=== PATIENT | female | born 1995 | race Two or more races ===

== ENCOUNTER 2024-07-30 11:15 | Emergency (ER) | payer MEDICAID ==
[~2024-07-30] VITALS: Ht 160 cm; Wt 85.0 kg
[~2024-07-30 11:15] MED LIST: Ibuprofen Micronized PO; PREN-96 PO
[2024-07-30 12:08] LABS: Hematocrit 41.2 % (36.0-46.0); Hemoglobin 14.1 g/dL (12.2-16.2); Mean Corpuscular Hemoglobin 31.1 pg (28.0-32.0); Mean Corpuscular Hgb Conc. 34.3 g/dL (32.0-36.0); Mean Corpuscular Volume 90.7 fL (80.0-100.0); Platelet Count (auto) 212 10^3/uL (140-450); Red Blood Cells 4.54 10^6/uL (4.0-5.20); Red Cell Distribution Width 14.5 % (11.8-14.3)
[2024-07-30 12:12] LABS: Band Neutrophils % (manual) 0; Basophils % (manual) 0 (0.0-2.0); Blast Cells 0; Metamyelocytes % 0; Myelocytes % 0; Promyelocytes % 0; Reactive Lymphocytes 0
[2024-07-30 12:53] VITALS: BP 107/70; PULSE 96; RESP 18; TEMP 98.6; O2SAT 97
[2024-07-30 12:53] LABS: Eosinophils % (manual) 1 (0-7); Lymphocytes % (manual) 36 (10.0-50.0); Monocytes % (manual) 21 (0-12); Platelet Estimate Adequate
--- NOTE | 2024-07-30 13:13 | DVH ---
OB ULTRASOUND <14 WEEKS: HISTORY: VAGINAL BLEEDING, 7 WEEKS TECHNIQUE: Multiple real-time grayscale sonographic images of the pelvis with duplex Doppler color f low, spectral and M-mode analysis. TRANSDUCERS: Transabdominal and endovaginal FINDINGS: The uterus measures 8.8 x 5.7 x 4.8 cm. The cervix appears closed. Right ovary measures 3.3 x 1.7 x 1.6 with normal Doppler color flow Left ovary measures 4.2 x 2.0 x 3.0 with normal Doppler color flow. Left ovarian cystic structure me asuring 1.8 cm. There is a cystic structure within the endometrial space measuring 1.03 cm. No definite internal yolk sac is appreciated. No pole or cardiac activity is noted. IMPRESSION: 1. Cystic structure within the endometrial space which may represent an early gestational sac versus pseudo gestational sac. No definite pole or cardiac motion is appreciated at this time, possibly due to early gestational age. Recommend continued correlation with beta HCG and follow-up so nography as clinically indicated. 2. Left ovarian 1.8 cm cystic structure could represent follicular cyst or corpus luteum cyst. HS:Y
[2024-07-30 14:35] LABS: Urine Bacteria FEW /hpf (None Seen); Urine Blood 3+ /uL (Negative); Urine Clarity Clear (Clear); Urine Color Colorless (Yellow); Urine Protein, UAD Negative (Negative); Urine Specific Gravity 1.003 (1.001-1.035); Urine Squamous Epithelial Cell FEW /hpf (<5); Urine Urobilinogen Normal (Negative); Urine WBC <1 /hpf (0 - 5); Urine pH 6.5 (5.0-9.0)
--- NOTE | 2024-07-30 14:35 | ED.PDOC ---
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 PATIENT REPORTS THAT SHE HAS BEEN SPOTTING SINCE YESTERDAY, BUT THEN STARTED TO HAVE WORSENING VAGINAL BLEEDING TODAY. PATIENT RELAYS THAT SHE HAS ASSOCIATED ABDOMINAL CRAMPING. PATIENT STATES SHE IS CURRENTLY 7 WEEKS , BUT DOES NOT HAVE AN OBGYN AT THIS TIME. PATIENT DENIES ANY N/V/D, DIZZINESS, VAGINAL DISCHARGE, DYSURIA, OR FEVER. Chief Complaint: Vaginal Bleed Time Seen by MD: 14:29 Reviewed Notes: Nurses Notes, Medications, Allergies Allergies: Coded Allergies: Corticosteroids (Verified Allergy, Unknown, 06/09/14) Home Meds Active Scripts [Ibuprofen Micronized] 600 MG TB No Conflict Check, 600 MG PO Q6HPRN PRN for MODERATE PAIN, #60 TAB Prov:MICKY YOUNG MD 06/11/14 Reported Medications Vit W/ Ferrous Fumara ( One Daily) Daily Tab, 1 TAB PO DAILY, #90 TAB 3 Refills 04/23/14 Information Source: Patient Mode of Arrival: Ambulatory Timing: Days Prehospital treatment: None Severity: Moderate Bleeding Quality: Bright Red Vaginal Mass: None Onset Of Mass/Bleeding: Spontaneous Sexual Activity: Last Consensual [place]: Unknown Control: None History of: Current Associated Signs and Symptoms: Vaginal Bleeding, Cramping Past Medical History PAST MEDICAL HISTORY: Denies Surgical History: Denies all surgeries ROLL ICER History: No Pertinent ROLL ICER History 2 Para 1 Family History Family History: Reviewed,noncontributory to illness Social History Smoker: Non-Smoker Alcohol: Denies ETOH Use Drugs: Denies Drug Use Lives In: Home Constitutional: denies: chills, diaphoresis, fatigue, fever, malaise, sweats, weakness, others EENTM: denies: blurred vision, double vision, ear bleeding, ear discharge, ear drainage, ear pain, ear ringing, eye pain, eye redness, hearing loss, mouth pain, mouth swelling, nasal discharge, nose bleeding, nose congestion, nose pain, photophobia, tearing, throat pain, throat swelling, voice changes, others Respiratory: denies: cough, hemoptysis, orthopnea, SOB at rest, shortness of breath, SOB with excertion, stridor, wheezing, others Cardiovascular: denies: chest pain, dizzy spells, diaphoresis, Dyspnea on exertion, edema, irregular heart beat, left arm pain, lightheadedness, palpitations, PND, syncope, others Gastrointestinal: denies: abdomen distended, abdominal pain, blood streaked bowels, constipated, diarrhea, dysphagia, difficulty swallowing, hematemesis, melena, nausea, poor appetite, poor fluid intake, rectal bleeding, rectal pain, vomiting, others Genitourinary: reports: abnormal vagina bleeding, , vagina discharge; denies: burning, dyspareunia, dysuria, flank pain, frequency, hematuria, incontinence, pain, urgency, others Neurological: denies: dizziness, fainting, headache, left sided numbness, left sided weakness, numbness, paresthesia, pre-existing deficit, right sided num bness, right sided weakness, seizure, speech problems, tingling, tremors, weakness, others Musculoskeletal: denies: back pain, gout, joint pain, joint swelling, muscle pain, muscle stiffness, neck pain, others Integumetry: denies: bruises, change in color, change in hair/nails, dryness, laceration, lesions, lumps, rash, wounds, others Allergic/Immunocompromised: denies: Difficulty Healing, Frequent Infections, Hives, Itching, others Hematologic/Lymphatic: denies: anemia, blood clots, easy bleeding, easy bruising, swollen glands, others Endocrine: denies: excessive hunger, excessive sweating, excessive thirst, excessive urination, flushing, intolerance to cold, intolerance to heat, unexplained weight gain, unexplained weight loss, others Psychiatric: denies: anxiety, bipolar disorder, depression, hopeless, panic disorder, schizophrenia, sleepless, suicidal, others All Other Systems: Reviewed and Negative Physical Exam General Appearance: No Apparent Distress, Normal HEENT: Normal ENT Inspection, PERRL/EOMI, Pharynx Normal Neck: Full Range of Motion, Non-Tender, Normal, Normal Inspection Respiratory: Chest Non-Tender, Lungs Clear, No Accessory Muscle Use, No Respiratory Distress, Normal Breath Sounds Cardiovascular: No Edema, No JVD, No Murmur, No Gallop, Normal Peripheral Pulses, Regular Rate/Rhythm Breast Exam: Deferred Gastrointestinal: No Organomegaly, Non Tender, No Pulsatile Mass, Normal Bowel Sounds, Soft Genitalia: Deferred Pelvic: Normal External Exam, Vaginal Bleeding (MILD VAGINAL BLEEDING, NO BLOOD CLOTS, NO ACTIVELY BLEEDING. 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 Was a procedure done?: No Differential Diagnosis (ROLL ICER) Vaginal Bleeding: - Threatened, Ectopic , UTI, Vaginitis X-Ray, Labs, Meds, VS Vital Signs Date Time Temp Pulse Resp B/P (MAP) Pulse Ox O2 Delivery O2 Flow Rate FiO2 07/30/24 12:53 98.6 96 18 107/70 (82) 97 98.6 07/30/24 12:53 96 18 97 Room Air 07/30/24 11:25 98.7 97 20 125/82 (96) 99 Lab Test 07/30/24 11:59 07/30/24 11:21 Range/Units White Blood Count 5.0 4.4-10.8 10^3/uL Red Blood Count 4.54 4.0-5.20 10^6/uL Hemoglobin 14.1 12.2-16.2 g/dL Hematocrit 41.2 36.0-46.0 % Mean Corpuscular Volume 90.7 80.0-100.0 fL Mean Corpuscular Hemoglobin 31.1 28.0-32.0 pg Mean Corpuscular Hemoglobin Concent 34.3 32.0-36.0 g/dL Red Cell Distribution Width 14.5 H 11.8-14.3 % Platelet Count 212 140-450 10^3/uL Mean Platelet Volume 8.8 6.9-10.8 fL Neutrophils (%) (Auto) 37.0-80.0 % Lymphocytes (%) (Auto) 10.0-50.0 % Monocytes (%) (Auto) 0.0-12.0 % Basophils (%) (Auto) 0.0-2.0 % Neutrophils # (Auto) 1.6-8.6 10 ^3/uL Lymphocytes # (Auto) 0.4-5.4 10 ^3/uL Monocytes # (Auto) 0-1.3 10 ^3/uL Differential Total Cells Counted 100.0 100 Neutrophils % (Manual) 42 37.0-80.0 Band Neutrophils % (Manual) 0 Lymphocytes % (Manual) 36 10.0-50.0 Monocytes % (Manual) 21 H 0-12 Eosinophils % (Manual) 1 0-7 Basophils % (Manual) 0 0.0-2.0 Metamyelocytes % (manual) 0 Myelocytes % (Manual) 0 Promyelocytes % (Manual) 0 Blast Cells % (Manual) 0 Reactive Lymphocytes 0 Platelet Estimate Adequate Beta HCG, Quantitative 8964.3 H 1.5-4.2 mIU/mL Urine Color Pending Urine Clarity Pending Urine pH Pending Urine Specific [place] Pending Urine Protein Pending Urine Ketones Pending Urine Blood Pending Urine Nitrite Pending Urine Bilirubin Pending Urine Urobilinogen Pending Urine Leukocyte Esterase Pending Urine RBC Pending Urine WBC Pending Urine Squamous Epithelial Cells Pending Urine Bacteria Pending Urine Glucose Pending PATIENT: NORA CORREAACCT: [id number]: [id number] : 1995 LOC: ER ROOM / BED: / AGE / SEX: 28 / F ADM STATUS: REG ER SERVICE 1134 ORDERING PHYSICIAN: RASHAAD ESCOBEDO PROCEDURE(s): OB4US - OB ULTRASOUND COMP LESS 14WKS REASON: VAGINAL BLEEDING, 7 WEEKS ORDER NUMBER(s): [id number], ACCESSION NUMBER(s): [id number] OB ULTRASOUND <14 WEEKS: HISTORY: VAGINAL BLEEDING, 7 WEEKS TECHNIQUE: Multiple real-time grayscale sonographic images of the pelvis with duplex Doppler color flow, spectral and M-mode analysis. TRANSDUCERS: Transabdominal and endovaginal FINDINGS: The uterus measures 8.8 x 5.7 x 4.8 cm. The cervix appears closed. Right ovary measures 3.3 x 1.7 x 1.6 with normal Doppler color flow Left ovary measures 4.2 x 2.0 x 3.0 with normal Doppler color flow. Left ovarian cystic structure measuring 1.8 cm. There is a cystic structure within the endometrial space measuring 1.03 cm. No definite internal yolk sac is appreciated. No pole or cardiac activity is noted. IMPRESSION: 1. Cystic structure within the endometrial space which may represent an early gestational sac versus pseudo gestational sac. No definite pole or cardiac motion is appreciated at this time, possibly due to early gestational age. Recommend continued correlation with beta HCG and follow-up sonography as clinically indicated. 2. Left ovarian 1.8 cm cystic structure could represent follicular cyst or corpus luteum cyst. HS:Y ATED BY: BALDO BURNS DO DICTATED DATE/TIME: 07/30/24 131 SIGNED BY: BALDO BURNS DO SIGNED DATE/TIME: 07/30/241309 CC: Time of 1ST Reevaluation: 14:30 Reevaluation 1ST: Improved Patient Education/Counseling: Diagnosis, Treatment, Need For Follow Up Family Education/Counseling: Diagnosis, Treatment, No Family Present Medical Screening: No EMC Exist At This Time Departure 1 Departure Time of Disposition: 14:33 Impression: Primary Impression: Vaginal bleeding affecting early Additional Impression: Threatened in early Disposition: 01 HOME / SELF CARE / HOMELESS Condition: Stable Additional Instructions: F/U ER OR [facility] IN 2 DAYS TO REPEAT BETA-HCG TEST. IF CONDITION BECOME WORSE, RETURN TO ED [facility]. Discharged With: Self Critical Care Note Critical Care Time?: No Stability Stability form required: No Heart Score Heart Score: Heart Score Response (Comments) Value History N/A 0 EKG N/A 0 Age N/A 0 Risk Factors N/A 0 Troponin N/A 0 Total 0 RASHAAD ESCOBEDO Jul 30, 2024 14:35
== END 2024-07-30 14:35 | disposition home or self-care (01) ==
LOC: ER 11:15
DX: O20.0 Threatened abortion (principal); Z3A.01 Less than 8 weeks gestation of pregnancy
CPT/HCPCS: 36415; 76801; 76817; 81001; 84702; 85007; 85027

== ENCOUNTER 2024-08-03 11:02 | Emergency (ER) | payer MEDICAID ==
[~2024-08-03] VITALS: Ht 160 cm; Wt 84.2 kg
--- NOTE | 2024-08-03 11:46 | ED.PDOC ---
History of Present Illness HPI Comments 28 year old female presents to the ED with a chief complaint of vaginal bleeding onset 07/30/2024. Patient is currently 7 weeks , has not seen OBGYN has appointment on 08/11/2024. She began experiencing vaginal bleeding with clots and passed tissue 3 days ago (has picture) as well as pelvic pain/cramping and low back pain. She was seen in this ED on 07/30/2024 and was told to come back in 2 days for repeat HCG. P:1. Denies PMHx. No other symptoms or modifying factors present at this time. Chief Complaint: Vaginal Bleed Time Seen by MD: 11:39 Primary Care Provider: song Reviewed Notes: Medications, Allergies Allergies: Coded Allergies: Corticosteroids (Verified Allergy, Unknown, 06/09/14) Home Meds Active Scripts [Ibuprofen Micronized] 600 MG TB No Conflict Check, 600 MG PO Q6HPRN PRN for MODERATE PAIN, #60 TAB Prov:MICKY YOUNG MD 06/11/14 Reported Medications Vit W/ Ferrous Fumara ( One Daily) Daily Tab, 1 TAB PO DAILY, #90 TAB 3 Refills 04/23/14 Information Source: Patient Mode of Arrival: Ambulatory Severity: Moderate Timing: Days Duration: Since onset Prehospital treatment: None Past Medical History PAST MEDICAL HISTORY: Denies Surgical History: Denies all surgeries BRIDAL GOWN FITTER History: No Pertinent BRIDAL GOWN FITTER History Family History Family History: Reviewed,noncontributory to illness Social History Smoker: Non-Smoker Alcohol: Denies ETOH Use Drugs: Denies Drug Use Lives In: Home Constitutional: denies: chills, diaphoresis, fatigue, fever, malaise, sweats, weakness, others EENTM: denies: blurred vision, double vision, ear bleeding, ear discharge, ear drainage, ear pain, ear ringing, eye pain, eye redness, hearing loss, mouth pain, mouth swelling, nasal discharge, nose bleeding, nose congestion, nose pain, photophobia, tearing, throat pain, throat swelling, voice changes, others Respiratory: denies: cough, hemoptysis, orthopnea, SOB at rest, shortness of breath, SOB with excertion, stridor, wheezing, others Cardiovascular: denies: chest pain, dizzy spells, diaphoresis, Dyspnea on exertion, edema, irregular heart beat, left arm pain, lightheadedness, palpitations, PND, syncope, others Gastrointestinal: denies: abdomen distended, abdominal pain, blood streaked bowels, constipated, diarrhea, dysphagia, difficulty swallowing, hematemesis, melena, nausea, poor appetite, poor fluid intake, rectal bleeding, rectal pain, vomiting, others Genitourinary: reports: abnormal vagina bleeding, pain, ; denies: burning, dyspareunia, dysuria, flank pain, frequency, hematuria, incontinence, vagina discharge, urgency, others Neurological: denies: dizziness, fainting, headache, left sided numbness, left sided weakness, numbness, paresthesia, pre-existing deficit, right sided numbness, right sided weakness, seizure, speech problems, tingling, tremors, weakness, others Musculoskeletal: denies: back pain, gout, joint pain, joint swelling, muscle pain, muscle stiffness, neck pain, others Integumetry: denies: bruises, change in color, change in hair/nails, dryness, laceration, lesions, lumps, rash, wounds, others Allergic/Immunocompromised: denies: Difficulty Healing, Frequent Infections, Hives, Itching, others Hematologic/Lymphatic: denies: anemia, blood clots, easy bleeding, easy bruising, swollen glands, others Endocrine: denies: excessive hunger, excessive sweating, excessive thirst, excessive urination, flushing, intolerance to cold, intolerance to heat, unexplained weight gain, unexplained weight loss, others Psychiatric: denies: anxiety, bipolar disorder, depression, hopeless, panic disorder, schizophrenia, sleepless, suicidal, others All Other Systems: Reviewed and Negative Physical Exam General Appearance: No Apparent Distress, Normal HEENT: Normal ENT Inspection Neck: Full Range of Motion, Non-Tender, Normal, Normal Inspection Respiratory: Chest Non-Tender, Lungs Clear, No Accessory Muscle Use, No Respiratory Distress, Normal Breath Sounds Cardiovascular: No Edema, No Murmur, No Gallop, Normal Peripheral Pulses, Regular Rate/Rhythm Breast Exam: Deferred Gastrointestinal: No Organomegaly, Non Tender, No Pulsatile Mass, Normal Bowel Sounds, Soft Genitalia: Deferred Pelvic: Deferred (per patient's request) Rectal: Deferred Extremities: No calf tenderness, Normal capillary refill, Normal inspection, Normal range of motion, Non-tender, No pedal edema Musculoskeletal : Apperance: Normal Neurologic: Alert, No Motor Deficits, Normal Affect, Normal Mood, No Sensory Deficits Cerebellar Function: NOT DONE Reflexes: NOT DONE Skin: Dry, Normal Color, Warm Lymphatic: No Adenopathy Was a procedure done? Was a procedure done?: No Differential Dx Considerations may include: Considered ectopic , coagulopathy, molar , as well as other causes for abnormal uterine bleeding, but believe these to be less likely based on history/physical/evaluation as above. X-Ray, Labs, Meds, VS Vital Signs Date Time Temp Pulse Resp B/P (MAP) Pulse Ox O2 Delivery O2 Flow Rate FiO2 08/03/24 11:21 99.2 100 17 128/47 (74) 98 Lab Test 08/03/24 12:04 08/03/24 11:54 Range/Units White Blood Count 5.6 4.4-10.8 10^3/uL Red Blood Count 4.41 4.0-5.20 10^6/uL Hemoglobin 13.6 12.2-16.2 g/dL Hematocrit 39.9 36.0-46.0 % Mean Corpuscular Volume 90.4 80.0-100.0 fL Mean Corpuscular Hemoglobin 30.8 28.0-32.0 pg Mean Corpuscular Hemoglobin Concent 34.0 32.0-36.0 g/dL Red Cell Distribution Width 14.1 11.8-14.3 % Platelet Count 241 140-450 10^3/uL Mean Platelet Volume 8.7 6.9-10.8 fL Neutrophils (%) (Auto) 53.6 37.0-80.0 % Lymphocytes (%) (Auto) 37.9 10.0-50.0 % Monocytes (%) (Auto) 6.3 0.0-12.0 % Eosinophils (%) (Auto) 1.8 0.0-7.0 % Basophils (%) (Auto) 0.4 0.0-2.0 % Neutrophils # (Auto) 3.0 1.6-8.6 10 ^3/uL Lymphocytes # (Auto) 2.1 0.4-5.4 10 ^3/uL Monocytes # (Auto) 0.4 0-1.3 10 ^3/uL Eosinophils # (Auto) 0.1 0-0.8 10 ^3/uL Basophils # (Auto) 0 0-0.2 10 ^3/uL Nucleated Red Blood Cells 0.1 % Sodium Level 141 136-145 mmol/L Potassium Level 4.0 3.5-5.1 mmol/L Chloride Level 109 H 98-107 mmol/L Carbon Dioxide Level 24 20-31 mmol/L Anion Gap 8 5-15 Blood Urea Nitrogen 13 9-23 mg/dL Creatinine 0.80 0.550-1.02 mg/dL Glomerular Filtration Rate Calc 102 >90 mL/min BUN/Creatinine Ratio 16.3 10.0-20.0 Serum Glucose 98 74-106 mg/dL Calcium Level 9.6 8.7-10.4 mg/dL Beta HCG, Quantitative 388.4 H 1.5-4.2 mIU/mL Urine Color Yellow Yellow Urine Clarity Turbid H Clear Urine pH 6.0 5.0-9.0 Urine Specific [place] 1.033 1.001-1.035 Urine Protein Trace H Negative Urine Ketones Negative Negative Urine Blood 3+ H Negative /uL Urine Nitrite Negative Negative Urine Bilirubin Negative Negative Urine Urobilinogen Normal Negative mg/dL Urine Leukocyte Esterase 3+ Negative /uL Urine RBC 119 0 - 4 /hpf Urine WBC 24 0 - 5 /hpf Urine Squamous Epithelial Cells Mod <5 /hpf Urine Bacteria None seen None Seen /hpf Urine Mucus Few None Seen Urine Glucose Normal Normal mg/dL X-Ray, Labs, Meds, VS Comment Patient presents with vaginal bleeding and passing tissue with low back pain/cramping in the first trimester with physical exam and evaluation concerning for threatened . Discussed with patient implications regarding this and that patient will need a repeat bHCG check and u ltrasound in the next 48 hours. No evidence of acute infection at this time. Patient is Rh+ and there is no current indication for Rhogam. Reviewed return precautions including, but not limited to significant vaginal bleeding, symptomatic anemia, severe abdominal pain, and fever >100.4. Patient is in agreement with the plan and all questions answered. Patient has an OB appointment in approx 7 days. Images Reviewed?: Images reviewed and evaluated by me Time of 1ST Reevaluation: 12:09 Reevaluation 1ST: Unchanged Patient Education/Counseling: Diagnosis, Treatment, Prognosis, Need For Follow Up (48 hours for repeat hcg/US) Family Education/Counseling: No Family Present Additional Information I reviewed the following notes from patient's past medical encounters: The following tests were ordered, and results were reviewed by me: CBC, TYPE AND SCREEN, OB ULTRASOUND COMP, BETA HCG, URINE PREGM BMP, UA, URINE BACTERIAL CULTURE I reviewed and agreed with the following test results read by other providers: OB ULTRASOUND COMP I discussed treatment and results with medical personnel and: patient Departure 1 Departure Time of Disposition: 16:03 Impression: Primary Impression: Miscarriage, threatened, early Disposition: HOME / SELF CARE / HOMELESS Condition: Stable Discharged With: Self Critical Care Note Critical Care Time?: No Stability Stability form required: No I personally scribed for ER ([email or web address]) on 08/03/24 at 11:50. Electronically submitted by Tawana Kerr ([email or web address]). I personally scribed for ER ([email or web address]) on 08/03/24 at 11:53. Electronically submitted by Tawana Kerr ([email or web address]). DONNIE AMAYA MD Aug 03, 2024 11:46 ER Aug 03, 2024 11:50
[2024-08-03 12:18] LABS: Urine Bacteria None Seen /hpf (None Seen)
[2024-08-03 12:35] LABS: Basophils # (auto) 0 10 ^3/uL (0-0.2); Basophils % (auto) 0.4 % (0.0-2.0); Eosinophils # (auto) 0.1 10 ^3/uL (0-0.8); Eosinophils % (auto) 1.8 % (0.0-7.0); Hematocrit 39.9 % (36.0-46.0); Hemoglobin 13.6 g/dL (12.2-16.2); Lymphocytes # (auto) 2.1 10 ^3/uL (0.4-5.4); Lymphocytes % (auto) 37.9 % (10.0-50.0); Mean Corpuscular Hemoglobin 30.8 pg (28.0-32.0); Mean Corpuscular Volume 90.4 fL (80.0-100.0); Monocytes # (auto) 0.4 10 ^3/uL (0-1.3); Monocytes % (auto) 6.3 % (0.0-12.0); Neutrophils % (auto) 53.6 % (37.0-80.0); Nucleated Red Blood Cells % 0.1 %; Platelet Count (auto) 241 10^3/uL (140-450); Red Blood Cells 4.41 10^6/uL (4.0-5.20); Red Cell Distribution Width 14.1 % (11.8-14.3); White Blood Cell 5.6 10^3/uL (4.4-10.8)
[2024-08-03 12:40] LABS: Urine Blood 3+ /uL (Negative); Urine Clarity Turbid (Clear); Urine Color Yellow (Yellow); Urine Mucus FEW (None Seen); Urine Protein, UAD TRACE (Negative); Urine Specific Gravity 1.033 (1.001-1.035); Urine Squamous Epithelial Cell MOD /hpf (<5); Urine Urobilinogen Normal (Negative); Urine WBC 24 /hpf (0 - 5)
[2024-08-03 12:41] LABS: Sodium 141 mmol/L (136-145)
[2024-08-03 12:42] LABS: Anion Gap 8 (5-15); Calcium 9.6 mg/dL (8.7-10.4); Carbon Dioxide 24 mmol/L (20-31)
[2024-08-03 12:43] LABS: Chloride 109 mmol/L (98-107)
[2024-08-03 12:47] LABS: BUN/Creatinine Ratio 16.3 (10.0-20.0); Blood Urea Nitrogen 13 mg/dL (9-23); Glucose 98 mg/dL (74-106)
--- NOTE | 2024-08-03 14:34 | DVH ---
OB ULTRASOUND <14 WEEKS: HISTORY: vaginal bleed, approx 7wk preg TECHNIQUE: Multiple real-time grayscale sonographic images of the pelvis with duplex Doppler color f low, spectral and M-mode analysis. TRANSDUCERS: Transabdominal and endovaginal FINDINGS: The uterus measures 8.5 x 4.8 x 6.0 cm. Endometrium measures 0.8 cm in thickness. The cervix appears closed. Right ovary measures 3.3 x 3.2 x 1.9 cm with normal Doppler color flow Left ovary measures 3.5 x 4.5 x 1.5 cm with normal Doppler color flow. Left ovarian follicle. No intrauterine gestational sac is identified on the provided images. IMPRESSION: 1. Previously identified intrauterine cystic structure is not seen on today's study. No IUP is identi fied. Recommend continued correlation with beta HCG and follow-up sonography as clinically indicated. HS:Y
[2024-08-03 14:36] VITALS: BP 131/89; PULSE 89; RESP 18; TEMP 99; O2SAT 100
== END 2024-08-03 15:59 | disposition home or self-care (01) ==
LOC: ER 11:02
DX: O20.0 Threatened abortion (principal); Z3A.01 Less than 8 weeks gestation of pregnancy; Z88.8 Allergy status to other drugs, medicaments and biological substances
CPT/HCPCS: 36415; 76801; 76817; 80048; 81001; 84702; 85025; 86850; 86900; 86901; 87086